=== PATIENT | female | born 1970 | race Caucasian/White ===

== ENCOUNTER 2016-08-30 10:46 | Observation (INO) | payer BC, OTHER ==
[~2016-08-30] VITALS: Ht 157.5 cm; Wt 80.4 kg
[2016-08-30] MEDS ORDERED: LACTATED RINGERS 1,000 ML IV SCH ×2 (11:34→12:04)
[2016-08-30 11:53] VITALS: BP 117/72
[2016-08-30] MEDS ORDERED: PLEASE ENTER ALLERGIES MC SCH ×2 (12:00)
[2016-08-30] MEDS ORDERED: PLEASE ENTER HEIGHT AND WEIGHT MC SCH (12:00)
[2016-08-30] MEDS ORDERED: [UNRECOGNIZED DRUG - OTHER] PO (12:04)
[2016-08-30] MEDS ORDERED: FLUO10CA13 PO (12:04)
[2016-08-30] MEDS ORDERED: HYDR-2442 PO (12:04)
[2016-08-30] MEDS ORDERED: ATOR40TA78 PO (12:04)
[2016-08-30 12:14] LABS: ASPARTATE AMINO TRANSFERASE 13 U/L (15-37); BLOOD UREA NITROGEN 10 mg/dL (7-18)
[2016-08-30] MEDS ORDERED: FLUORESCEIN SODIUM 500 MG/5 ML ONE (12:27)
[2016-08-30] MEDS ORDERED: BUPIVACAINE/PF-EPI 0.25% 1:200K ONE ×2 (12:27→12:48)
[2016-08-30] MEDS ORDERED: FENTANYL PF 250 MCG/5ML ONE (12:56)
[2016-08-30] MEDS ORDERED: MIDAZOLAM 1 MG/ML, 2ML ONE (12:56)
[2016-08-30] MEDS ORDERED: KETAMINE 10 MG/ML, 20ML ONE (13:34)
[2016-08-30] MEDS ORDERED: ACETAMINOPHEN 325 MG TABLET PO PRN ×2 (14:00→20:00)
[2016-08-30] MEDS ORDERED: MIDAZOLAM 1 MG/ML, 2ML IV PRN (14:00)
[2016-08-30] MEDS ORDERED: MEPERIDINE/PF 25MG/0.5ML IVPush PRN (14:00)
[2016-08-30] MEDS ORDERED: LABETALOL 5MG/ML, 20ML IV PRN (14:00)
[2016-08-30] MEDS ORDERED: OXYcodone 5 MG/5 ML ORAL.SOL UDC PO PRN (14:00)
[2016-08-30] MEDS ORDERED: ONDANSETRON 2MG/ML, 2ML IVPush PRN (14:00)
[2016-08-30] MEDS ORDERED: hydrALAzine 20 MG/ML, 1ML IV PRN (14:00)
[2016-08-30] MEDS ORDERED: ALBUTEROL/IPRATROPIUM 2.5MG/0.5MG, 3 ML NPPB PRN (14:00)
[2016-08-30] MEDS ORDERED: HYDROmorphone 1 MG/ML, 1ML IV PRN (14:00)
[2016-08-30] MEDS ORDERED: PROMETHAZINE 25 MG/ML, 1ML IV PRN (14:00)
[2016-08-30] MEDS ORDERED: HYDROmorphone 1 MG/ML, 1ML ONE (14:37)
[2016-08-30] MEDS ORDERED: LACTATED RINGERS 1,000 ML IVBOLUS ONE (15:30)
[2016-08-30] MEDS ORDERED: OXYcodone 5 MG/5 ML ORAL.SOL UDC ONE (15:30)
[2016-08-30] MEDS ORDERED: FENTANYL PF 100 MCG/2ML ONE (15:30)
[2016-08-30] MEDS: FENTANYL PF 100 MCG/2ML IV PRN ×3 (15:32→16:15)
[2016-08-30] MEDS ORDERED: KETOROLAC 30 MG/1 ML ONE (15:35)
[2016-08-30] MEDS ORDERED: PHENYLEPHRINE 10 MG/ML ONE (15:55)
[2016-08-30] MEDS ORDERED: ROCURONIUM 10 MG/ML ONE (15:55)
[2016-08-30] MEDS ORDERED: NEOSTIGMINE 1 MG/ML, 10ML ONE (15:55)
[2016-08-30] MEDS ORDERED: METOCLOPRAMIDE 5 MG/ML, 2ML ONE (15:55)
[2016-08-30] MEDS ORDERED: GLYCOPYRROLATE 0.2MG/1ML ONE (15:55)
[2016-08-30] MEDS ORDERED: DEXAMETHASONE 4 MG/ML, 1ML ONE (15:55)
[2016-08-30] MEDS ORDERED: ONDANSETRON 2MG/ML, 2ML ONE (15:55)
[2016-08-30] MEDS ORDERED: PROPOFOL 10 MG/ML, 20ML ONE (15:55)
[2016-08-30] MEDS ORDERED: CEFAZOLIN 1,000 MG ONE (15:55)
[2016-08-30] MEDS ORDERED: SUCCINYLCHOLINE 20 MG/ML, 10ML ONE (15:55)
[2016-08-30] MEDS ORDERED: KETOROLAC 30 MG/1 ML IVPush PRN (16:00)
[2016-08-30 16:33] LABS: HEMOGLOBIN 12.1 g/dL (11.7-16.4)
[2016-08-30 16:44] LABS: ASPARTATE AMINO TRANSFERASE 13 U/L (15-37); BLOOD UREA NITROGEN 11 mg/dL (7-18)
[2016-08-30] MEDS: POTASSIUM CHLORIDE 40 MEQ in D5%-LACTATED RINGERS 1,000 ML IV SCH (17:30)
[2016-08-30 18:42] VITALS: BP 95/62
[2016-08-30] MEDS ORDERED: KETOROLAC 30 MG/1 ML IVPush ONE (19:43)
[2016-08-30] MEDS ORDERED: morphine SULFATE 10 MG/ML, 1ML IV PRN (20:00)
[2016-08-30] MEDS ORDERED: ACETAMINOPHEN 650 MG SUPP PR PRN (20:00)
[2016-08-30] MEDS ORDERED: BISACODYL 10 MG SUPP PR PRN (20:00)
[2016-08-30] MEDS: OXYcodone/APAP 5/325MG TABLET PO PRN (20:18)
[2016-08-30] MEDS: SIMETHICONE 80 MG CHEW TAB PO SCH (21:00)
[2016-08-30] MEDS ORDERED: SENNA/DOCUSATE TABLET PO SCH (21:00)
[2016-08-30] MEDS: DOCUSATE 100 MG CAPSULE PO SCH (21:00)
[2016-08-30] MEDS: IBUPROFEN 600 MG TABLET PO SCH (21:00)
[2016-08-30] MEDS ORDERED: ZOLPIDEM 5MG TABLET PO PRN (21:00)
[2016-08-30] MEDS ORDERED: ATORVASTATIN 40 MG TABLET PO SCH (21:00)
[2016-08-30 23:58] VITALS: BP 98/57
[2016-08-31] MEDS: POTASSIUM CHLORIDE 40 MEQ in D5%-LACTATED RINGERS 1,000 ML IV SCH ×2 (00:37→09:50)
[2016-08-31] MEDS ORDERED: OXYC-302 PO (00:51)
[2016-08-31] MEDS ORDERED: IBUP-1222 PO (00:52)
[2016-08-31] MEDS ORDERED: DOCU-30 PO (00:53)
[2016-08-31 04:34] VITALS: BP 114/70
[2016-08-31 05:45] LABS: HEMOGLOBIN 12.1 g/dL (11.7-16.4)
[2016-08-31] MEDS: IBUPROFEN 600 MG TABLET PO SCH ×2 (05:55→10:55)
[2016-08-31 05:58] LABS: BLOOD UREA NITROGEN 13 mg/dL (7-18)
[2016-08-31 06:09] LABS: ASPARTATE AMINO TRANSFERASE 17 U/L (15-37)
[2016-08-31] MEDS ORDERED: FLUOXETINE 20 MG/5 ML ORAL SOL PO SCH (09:00)
[2016-08-31 09:04] VITALS: BP 92/52
[2016-08-31] MEDS: SIMETHICONE 80 MG CHEW TAB PO SCH (09:38)
[2016-08-31] MEDS: OXYcodone/APAP 5/325MG TABLET PO PRN ×2 (09:38→14:02)
[2016-08-31] MEDS: DOCUSATE 100 MG CAPSULE PO SCH (09:38)
== END 2016-08-31 16:00 | disposition home or self-care (01) ==
LOC: OUT 10:46 → 4NOR 17:26 → OUT 22:35 → 4NOR 22:35 → DCLOUNGE 08-31 15:30
PROVIDERS: ADMIT Obstetrics & Gynecology; ATTEND Obstetrics & Gynecology
DX: N80.0 Endometriosis of uterus (principal); E78.5 Hyperlipidemia, unspecified; E11.9 Type 2 diabetes mellitus without complications
CPT/HCPCS: 36415; 44005; 49000; 58740; 80053; 84439; 84443; 84481; 84703; 85025; 86850; 86900; 88307; 93005; G0378; J0330; J0690; J1100; J1170; J1885; J2250; J2370; J2405; J2704; J2710; J2765; J3010; J7120; J3490